=== PATIENT | female | born 1985 | race Caucasian/White ===

== ENCOUNTER 2017-09-30 00:36 | Day surgery (SDC) | payer OTHER ==
[~2017-09-30 00:36] MED LIST: ACET325 PO; ACYC400 PO; Remicade100 MG IV; Verotin-Gr Cap1 EACH PO
[2017-12-13] MEDS ORDERED: HYOS.125 (07:20)
== END 2017-09-30 11:16 | disposition home or self-care (01) ==
LOC: ATC 00:36
DX: K50.90 Crohn's disease, unspecified, without complications (principal); Z79.899 Other long term (current) drug therapy
CPT/HCPCS: 96375; 96413; 96415; J1720; J7050; Q0163; Q5102-ZB

== ENCOUNTER 2017-12-02 00:31 | Day surgery (SDC) | payer OTHER ==
[2017-12-13] MEDS ORDERED: HYOS.125 (07:20)
== END 2017-12-02 10:50 | disposition home or self-care (01) ==
LOC: ATC 00:31
DX: K50.90 Crohn's disease, unspecified, without complications (principal); K76.0 Fatty (change of) liver, not elsewhere classified; E66.9 Obesity, unspecified
CPT/HCPCS: 96413; 96415; J1720; J7050; Q0163; Q5102-ZB

== ENCOUNTER 2017-12-20 09:50 | Day surgery (SDC) | payer OTHER ==
[~2017-12-20] VITALS: Ht 167.6 cm; Wt 108.1 kg
[~2017-12-20 09:50] MED LIST changes: +HYOS.125
== END 2017-12-20 12:00 | disposition home or self-care (01) ==
LOC: ORSCSDS 09:50
PROVIDERS: Internal Medicine Gastroenterology
PROC: 0DJD8ZZ Inspection of Lower Intestinal Tract, Via Natural or Artificial Opening Endoscopic (ICD-10-PCS; principal; 2017-12-20 11:30)
DX: K50.90 Crohn's disease, unspecified, without complications (principal); K64.0 First degree hemorrhoids; K64.1 Second degree hemorrhoids; K64.4 Residual hemorrhoidal skin tags; Z87.891 Personal history of nicotine dependence; Z79.899 Other long term (current) drug therapy
CPT/HCPCS: J7120

== ENCOUNTER → 2018-01-08 | Outpatient (CLI) | payer OTHER | END | disposition home or self-care (01) | LOC: PLD 08:00 → LAB SHORT 08:00 | DX: J03.90 Acute tonsillitis, unspecified (principal); R23.4 Changes in skin texture | CPT/HCPCS: 88305 ==